=== PATIENT | female | born 1995 | race Hispanic/Latino ===

== ENCOUNTER 2017-07-24 14:28 | Emergency (ER) | payer BC ==
[2017-07-24 14:53] VITALS: RESP 16; O2SAT 100
[2017-07-24] MEDS ORDERED: Famotidine 20mg/50ml 20 MG/50 ML BAG IVPB ONE ×2 (15:45→16:00)
[2017-07-24 16:20] LABS: BASO % 0.1 % (0.0-2.0); EOS # 0.2 K/uL (0.0-0.7); EOS % 2.5 % (0.0-4.0); HEMOGLOBIN 14.1 g/dL (12.0-16.0); LYMPH # 0.8 K/uL (1.0-4.3); LYMPH % 13.3 % (20.0-40.0); MEAN CELL VOLUME 90.2 fl (81.0-99.0); MEAN CORPUSCULAR HEMOGLOBIN 31.4 pg (27.0-31.0); MEAN CORPUSCULAR HGB CONC 34.8 g/dL (33.0-37.0); MEAN PLATELET VOLUME 8.3 fl (7.2-11.7); MONO # 0.4 K/uL (0.0-0.8); MONO % 6.6 % (0.0-10.0); NEUT # 4.9 K/uL (1.8-7.0); NEUT % 77.5 % (50.0-75.0); NRBC % 0.1 % (0.0-0.0); RBC 4.5 Mil/uL (3.80-5.20); RED CELL DISTRIBUTION WIDTH 12.9 % (11.5-14.5); WHITE BLOOD COUNT 6.3 K/uL (4.8-10.8)
[2017-07-24 16:28] LABS: CALCIUM 9.1 mg/dL (8.4-10.2); GFR AFRICAN-AMERICAN > 60; GFR NON-AFRICAN AMERICAN > 60; LIPASE 102 U/L (23-300)
[2017-07-24 16:33] LABS: ALB/GLOB RATIO 1.1 (1.0-2.1); ALBUMIN 4.5 g/dL (3.5-5.0); ALT/SGPT 28 U/L (9-52); AST/SGOT 40 U/L (14-36); BLOOD UREA NITROGEN 14 mg/dl (7-17)
[2017-07-24 16:35] LABS: SQUAMOUS EPITHIAL 2 /hpf (0-5); URINE BILIRUBIN NEGATIVE (NEGATIVE); URINE BLOOD NEGATIVE (NEGATIVE); URINE CLARITY SLIGHTY-CLOUDY (Clear); URINE COLOR YELLOW (YELLOW); URINE GLUCOSE (UA) NEG (Normal); URINE LEUKOCYTE ESTERASE NEG Leu/uL (Negative); URINE PROTEIN NEGATIVE (NEGATIVE); URINE UROBILINOGEN 0.2-1.0 mg/dL (0.2-1.0)
--- NOTE | 2017-07-24 16:44 | ED PDOC ---
HPI: General Adult Time Seen by Provider: 07/24/17 15:14 Chief Complaint (Nursing): Abdominal Pain History Per: Patient Additional Complaint(s): Pt. states for the past 2 days she's had diffuse abdominal pain which began yesterday which became worse after eating at a buffet. Describes the pain as feeling "full." Reports that she feels as if food goes up into her throat. States that she normally has constipation problems which became worse last month after taking percocet for her broken leg. States today she had a small BM after taking Senna. Further states that she has felt nauseous but has had not vomiting. Denies chest pain, SOB, palpitations, leg pain, hemoptysis, fever, previous abdominal surgeries, melena, hematochezia, BRBPR. Past Medical History Reviewed: Historical Data, Nursing Documentation, Vital Signs Vital Signs: Last Vital Signs Temp 98 F 07/24/17 18:35 Pulse 69 07/24/17 18:35 Resp 16 07/24/17 18:35 BP 119/62 07/24/17 18:35 Pulse Ox 100 07/24/17 18:35 - Surgical History Surgical History: No Surg Hx - Family History Family History: States: No Known Family Hx - Home Medications Home Medications: Ambulatory Orders Medication Instructions Recorded Famotidine [Pepcid] 20 mg PO DAILY PRN #14 tab 07/24/17 - Allergies Allergies/Adverse Reactions: Allergies Allergy/AdvReac Type Severity Reaction Status Date / Time cobalt Allergy URTICARIA Verified 07/24/17 14:50 nickel Allergy URTICARIA Verified 07/24/17 14:50 Review of Systems ROS Statement: Except As Marked, All Systems Reviewed And Found Negative Gastrointestinal: Positive for: Nausea, Vomiting, Abdominal Pain. Negative for : Diarrhea Physical Exam - Physical Exam Appears: Positive for: Well, Non-toxic, No Acute Distress Skin: Positive for: Normal Color, Warm. Negative for: Rash Eye Exam: Positive for: Normal appearance Neck: Positive for: Normal, Painless ROM Cardiovascular/Chest: Positive for: Regular Rate, Rhythm Respiratory: Positive for: Normal Breath Sounds. Negative for: Respiratory Distress Gastrointestinal/Abdominal: Positive for: Normal Exam, Bowel Sounds, Soft. Negative for: Tenderness, Distended Back: Positive for: Normal Inspection. Negative for: L CVA Tenderness, R CVA Tenderness Neurologic/Psych: Positive for: Alert, Oriented. Negative for: Aphasia, Facial Droop - Laboratory Results Result Diagrams: 07/24/17 16:14 07/24/17 16:14 - ECG O2 Sat by Pulse Oximetry: 100 Disposition - Clinical Impression Clinical Impression: Abdominal pain - Disposition Referrals: [facility] [place] [Outside] [facility] [Outside] Condition: IMPROVED Additional Instructions: Follow up with your PMD for further evaluation Return to ED immediately if symptoms worsen without fail Prescriptions: Famotidine [Pepcid] 20 mg PO DAILY PRN #14 tab PRN Reason: Dyspepsia Instructions: Gastritis Forms: [employer] (Icelandic) Print Language: [place]
--- NOTE | 2017-07-24 16:54 | RAD ---
PROCEDURE: Radiographs of the chest and abdomen (obstructive series) HISTORY: Abdominal COMPARISON: No prior. TECHNIQUE: AP radiograph of the chest, with upright and supine radiographs of the abdomen. FINDINGS: CHEST: Lungs: Clear. Cardiovascular: Normal size heart. No pulmonary vascular congestion. Pleura: No pleural fluid. No pneumothorax. Other findings: None. ABDOMEN AND PELVIS: Bowel: Unremarkable bowel gas pattern. No evidence of mechanical obstruction. Free air: None. Bones: Unremarkable. Other findings: None. IMPRESSION: No acute findings related to/accounting for the clinical presentation.
[2017-07-24 18:37] VITALS: BP 119/62; PULSE 69; TEMP 98
== END 2017-07-24 18:35 | disposition home or self-care (01) ==
LOC: H.ER 14:28
DX: K59.00 Constipation, unspecified (principal); R10.9 Unspecified abdominal pain